=== PATIENT | female | born 1960 | race Asian ===

== ENCOUNTER 2016-07-24 12:41 | Emergency (ER) | payer OTHER ==
[~2016-07-24] VITALS: Ht 162.6 cm; Wt 68.0 kg
[~2016-07-24 12:41] MED LIST: IBUP-2070 PO; LISI-661 PO; LORA10TA7 PO; METF500T4 PO; MULT-71 PO; OMEG300C3 PO; VITA100C5 PO
[2016-07-24] MEDS ORDERED: CITA10TA68 PO (12:49)
[2016-07-24 13:32] LABS: BASOPHILS % (AUTO) 0.3 % (0.0-2.0); EOSINOPHILS % (AUTO) 1.2 % (1.0-6.0); HEMATOCRIT 44.6 % (36-46); HEMOGLOBIN 14.5 g/dL (12.0-16.0); LYMPHOCYTES # (AUTO) 1.5 K/uL (1.0-4.8); LYMPHOCYTES % (AUTO) 31.4 % (22.0-44.0); MEAN CORPUSCULAR HEMOGLOBIN 30.8 pg (26.0-34.0); MEAN CORPUSCULAR HGB CONC 32.5 G/dL (31.0-37.0); MEAN CORPUSCULAR VOLUME 95 fL (80-100); MONOCYTES # (AUTO) 0.4 K/uL (0.1-1.0); MONOCYTES % (AUTO) 8.7 % (2.0-9.0); NEUTROPHILS # (AUTO) 2.8 K/uL (1.8-7.7); NEUTROPHILS % (AUTO) 58.4 % (40.0-70.0); PLATELET COUNT (AUTO) 194 K/uL (150-450); WHITE BLOOD COUNT (AUTO) 4.8 K/uL (4.5-11.0)
[2016-07-24 13:41] LABS: ANION GAP 9 mmol/L (8-16); CALCIUM, TOTAL 9.2 mg/dL (8.8-10.5); CARBON DIOXIDE 28 mmol/L (22-29); CHLORIDE 102 mmol/L (98-107); CREATININE 0.63 mg/dL (0.60-1.30); GLOMERULAR FILTR. RATE CALC > 60 mL/min (>60); POTASSIUM 3.9 mmol/L (3.5-5.1); SODIUM SERUM 139 mmol/L (136-145); UREA NITROGEN, BLOOD 16 mg/dL (7-18)
[2016-07-24 13:46] LABS: ALANINE AMINOTRANSFERASE 16 U/L (12-78); ALBUMIN 3.8 g/dL (3.4-5.0); ASPARTATE AMINOTRANSFERASE 15 U/L (15-37); BILIRUBIN,TOTAL 0.5 mg/dL (0.1-1.0); TOTAL PROTEIN, SERUM 8.2 g/dL (6.4-8.2)
[2016-07-24 14:24] VITALS: BP 112/79
== END 2016-07-24 14:38 | disposition home or self-care (01) ==
LOC: EMS 12:43
DX: F41.9 Anxiety disorder, unspecified (principal); G47.00 Insomnia, unspecified; R42 Dizziness and giddiness; E11.9 Type 2 diabetes mellitus without complications; I10 Essential (primary) hypertension
CPT/HCPCS: 82962; 93005; 99285

== ENCOUNTER 2018-07-21 08:00 | Emergency (ER) | payer OTHER ==
[~2018-07-21] VITALS: Ht 160 cm; Wt 62.7 kg
[~2018-07-21 08:00] MED LIST changes: +CITA10TA68 PO; -IBUP-2070 PO; -LISI-661 PO; -LORA10TA7 PO; +METF-960 PO; -METF500T4 PO; -MULT-71 PO; -OMEG300C3 PO; -VITA100C5 PO
[2018-07-21] MEDS ORDERED: LORA10TA7 PO (08:19)
[2018-07-21 08:24] LABS: GLUCOSE,POINT OF CARE 141 MG/DL (70-110)
[2018-07-21] MEDS ORDERED: ACETAMINOPHEN 325 MG TABLET PO ONE (08:45)
[2018-07-21] MEDS ORDERED: METOCLOPRAMIDE HCL 5 MG/ML 2 ML VIAL IVP ONE (08:45)
[2018-07-21] MEDS ORDERED: DiphenhydrAMINE HCL 50 MG/ML VIAL IVP ONE (08:45)
[2018-07-21 09:07] LABS: BASOPHILS % (AUTO) 0.3 % (0.0-2.0); EOSINOPHILS % (AUTO) 0.5 % (1.0-6.0); HEMATOCRIT 45.8 % (36-46); HEMOGLOBIN 15.3 g/dL (12.0-16.0); LYMPHOCYTES # (AUTO) 0.6 K/uL (1.0-4.8); LYMPHOCYTES % (AUTO) 14.4 % (22.0-44.0); MEAN CORPUSCULAR HEMOGLOBIN 31.8 pg (26.0-34.0); MEAN CORPUSCULAR HGB CONC 33.4 G/dL (31.0-37.0); MEAN CORPUSCULAR VOLUME 95 fL (80-100); MONOCYTES # (AUTO) 0.3 K/uL (0.1-1.0); NEUTROPHILS # (AUTO) 3.2 K/uL (1.8-7.7); NEUTROPHILS % (AUTO) 76.8 % (40.0-70.0); PLATELET COUNT (AUTO) 167 K/uL (150-450); RED BLOOD CELL COUNT(AUTO) 4.81 MIL/uL (4.00-5.20); RED CELL DISTRIBUTION WIDTH 12.8 % (11.5-14.5)
[2018-07-21 09:17] LABS: ANION GAP 8 mmol/L (8-16); CALCIUM, TOTAL 9.7 mg/dL (8.8-10.5); CARBON DIOXIDE 29 mmol/L (22-29); CHLORIDE 101 mmol/L (98-107); CREATININE 0.78 mg/dL (0.60-1.30); GLOMERULAR FILTR. RATE CALC > 60 mL/min (>60); GLUCOSE,RANDOM 124 mg/dL (70-110); POTASSIUM 3.7 mmol/L (3.5-5.1); SODIUM SERUM 138 mmol/L (136-145); UREA NITROGEN, BLOOD 11 mg/dL (7-18)
[2018-07-21 09:18] LABS: PROTHROMBIN TIME 10.2 SEC (9.4-11.6)
[2018-07-21 09:41] LABS: B-TYPE NATRIURETIC PEPTIDE 27 pg/mL (0-100)
[2018-07-21 09:43] LABS: ALANINE AMINOTRANSFERASE 18 U/L (12-78); ALBUMIN 4.3 g/dL (3.4-5.0); ALKALINE PHOSPHATASE 69 U/L (46-116); ASPARTATE AMINOTRANSFERASE 21 U/L (15-37); BILIRUBIN,TOTAL 0.7 mg/dL (0.1-1.0); CREATINE KINASE, TOTAL ONLY 77 U/L (26-192); TOTAL PROTEIN, SERUM 8.8 g/dL (6.4-8.2)
[2018-07-21 09:45] LABS: APPEARANCE,URINE TURBID (CLEAR); BILIRUBIN,URINE NEGATIVE (NEGATIVE); GLUCOSE, URINE (UA) NEGATIVE (NEGATIVE); KETONES,URINE NEGATIVE (NEGATIVE); LEUKOCYTE ESTERASE ,URINE TRACE (NEGATIVE); NITRATE,URINE NEGATIVE (NEGATIVE); OCCULT BLOOD,URINE NEGATIVE (NEGATIVE); PROTEIN,URINE NEGATIVE (NEGATIVE); UROBILINOGEN,URINE 0.2 mg/dL (<=1.0)
[2018-07-21 09:50] LABS: AMORPHOUS SEDIMENT,UR Many /LPF (None Seen); BACTERIA,URINE None Seen /HPF (None Seen); RBC,URINE None Seen /HPF (0-2); WBC,URINE 0-2 /HPF (0-5)
[2018-07-21 12:21] VITALS: BP 119/63
== END 2018-07-21 12:41 | disposition home or self-care (01) ==
LOC: EMS 08:00
DX: R51 Headache (principal); R20.2 Paresthesia of skin; R07.9 Chest pain, unspecified; F41.9 Anxiety disorder, unspecified; E11.9 Type 2 diabetes mellitus without complications; I10 Essential (primary) hypertension; Z79.899 Other long term (current) drug therapy
CPT/HCPCS: 36415; 70450; 71045; 80053; 81001; 82550; 82962; 83880; 84484; 85025; 85610; 85730; 93005; 96374; 96375; 99285; J1200; J2765

== ENCOUNTER 2019-06-20 12:26 | Emergency (ER) | payer OTHER ==
[~2019-06-20] VITALS: Ht 160 cm; Wt 63.6 kg
[~2019-06-20 12:26] MED LIST changes: -CITA10TA68 PO; +LORA10TA7 PO; -METF-960 PO
[2019-06-20 12:51] LABS: GLUCOSE,POINT OF CARE 91 MG/DL (70-110)
[2019-06-20 14:02] VITALS: BP 144/83
[2019-06-20] MEDS ORDERED: BENZONATATE 100 MG CAPSULE PO ONE (14:30)
== END 2019-06-20 15:07 | disposition home or self-care (01) ==
LOC: EMS 12:27
DX: J06.9 Acute upper respiratory infection, unspecified (principal); B97.89 Other viral agents as the cause of diseases classified elsewhere; E11.9 Type 2 diabetes mellitus without complications; I10 Essential (primary) hypertension; F41.9 Anxiety disorder, unspecified; Z20.828 Contact with and (suspected) exposure to other viral communicable diseases; Z79.899 Other long term (current) drug therapy
CPT/HCPCS: 87635

== ENCOUNTER 2021-06-18 11:52 | Emergency (ER) | payer OTHER ==
[~2021-06-18] VITALS: Ht 162.6 cm; Wt 55.5 kg
[~2021-06-18 11:52] MED LIST changes: +ACET-2247 PO; +CIPR-278 PO; +FAMO20 PO; +METR500 PO; +ONDA-104 PO
[2021-06-18 11:53] VITALS: BP 127/65
== END 2021-06-18 13:15 | disposition home or self-care (01) ==
LOC: EMS 11:55
DX: S09.90XA Unspecified injury of head, initial encounter (principal); E11.9 Type 2 diabetes mellitus without complications; I10 Essential (primary) hypertension; F41.9 Anxiety disorder, unspecified; W19.XXXA Unspecified fall, initial encounter; Y93.89 Activity, other specified; Y92.89 Other specified places as the place of occurrence of the external cause; Y99.8 Other external cause status
CPT/HCPCS: 70450; 82962; 99284

== ENCOUNTER 2021-09-05 22:30 | Emergency (ER) | payer OTHER ==
[~2021-09-05] VITALS: Ht 160 cm; Wt 61.4 kg
[2021-09-06] MEDS ORDERED: IBUP-1554 PO (02:53)
[2021-09-06 04:00] VITALS: BP 130/77
== END 2021-09-06 04:18 | disposition home or self-care (01) ==
LOC: EMS 22:58
DX: S40.011A Contusion of right shoulder, initial encounter (principal); M17.0 Bilateral primary osteoarthritis of knee; I10 Essential (primary) hypertension; E11.9 Type 2 diabetes mellitus without complications; F41.9 Anxiety disorder, unspecified; Z79.899 Other long term (current) drug therapy; W18.39XA Other fall on same level, initial encounter; Y93.89 Activity, other specified; Y92.89 Other specified places as the place of occurrence of the external cause; Y99.0 Civilian activity done for income or pay
CPT/HCPCS: 99284; 73030-TC; 73562-TC; Z7502

== ENCOUNTER 2021-09-07 15:29 | Emergency (ER) | payer OTHER ==
[~2021-09-07] VITALS: Ht 162.6 cm; Wt 58.2 kg
[~2021-09-07 15:29] MED LIST changes: +IBUP-1554 PO
[2021-09-07] MEDS ORDERED: LORazepam 1 MG TABLET PO ONE (16:00)
[2021-09-07 16:35] LABS: GLUCOMETER DEV NAME(LOC) ERT.5; GLUCOSE,POINT OF CARE 167 MG/DL (70-110)
[2021-09-07 16:41] VITALS: BP 146/82
== END 2021-09-07 17:56 | disposition home or self-care (01) ==
LOC: EMS 15:29
DX: F41.0 Panic disorder [episodic paroxysmal anxiety] (principal); I10 Essential (primary) hypertension; E11.9 Type 2 diabetes mellitus without complications
CPT/HCPCS: 82948; 82962; 93005; 99284